=== PATIENT | male | born 2005 | race Caucasian/White ===

== ENCOUNTER 2025-06-05 15:41 | Emergency (ER) | payer OTHER ==
[~2025-06-05] VITALS: Ht 177.8 cm; Wt 80.0 kg
[2025-06-05 15:49] VITALS: O2SAT 99
[2025-06-05] MEDS: LIDOCAINE 5% PATCH TOP SCH ×2 (16:50→18:00)
[2025-06-05] MEDS: KETOROLAC 30MG/ML VIAL IM ONE (16:50)
[2025-06-05] MEDS: DEXAMETHASONE 4MG/ML 1ML VIAL IM ONE (18:04)
[2025-06-05] MEDS ORDERED: GABA-529 MT (18:16)
[2025-06-05] MEDS ORDERED: LIDO-53 TP (18:16)
[2025-06-05 19:23] VITALS: BP 132/76; PULSE 64; RESP 18; TEMP 36.9; O2SAT 100
== END 2025-06-05 19:25 | disposition home or self-care (01) ==
LOC: ER 15:41
DX: M54.50 Low back pain, unspecified (principal); Z79.899 Other long term (current) drug therapy
CPT/HCPCS: 99284; 72220; 96372; J1885; J1100